=== PATIENT | female | born 1940 | race African-American/Black ===

== ENCOUNTER 2022-03-18 09:57 | Observation (INO) | payer MEDICARE, OTHER ==
[~2022-03-18] VITALS: Ht 160 cm; Wt 57.0 kg
[2022-03-18] VITALS (8 sets, daily range): BP systolic 165–215; BP diastolic 73–96
[~2022-03-18 09:57] MED LIST: ACYCLOVIR800 MG PO; ANTIVERT OR; BACTRIM DS1 TAB PO; CARAFATE PO; CIPROFLOXACN250 MG PO; CLONIDINE HCL0.2 MG PO; CLONIDINE0.2 MG PO; COLCHICINE PO; COLCHICINE0.6 M2 PO; DIDN'T BRING MEDS; EQ OMEPRAZOLE20 MG PO; FLUZONE SPLT1 M1 IM; GLYBURID MCR3 MG OR; HEMOCYTE PLU PO; HYDRALAZINE25 MG PO; HYDROCO/APAP1 T10 OR; IBUPROFEN600 MG OR; IBUPROFEN800 MG PO; KLOR-CON 1010 ME1 PO; KLOR-CON M1010 MEQ OR; KLOR-CON M1010 MEQ PO; KLOR-CON M1010 MEQ RE; LEVAQUIN500 MG PO; LIPITOR80 M1 PO; LISINOPRIL20 MG PO; LISINOPRIL40 MG OR; LOPID600 MG PO; LOPRESSOR25 MG OR; LOPRESSOR25 MG PO; LORTAB 10 PO; LORTAB 1010 MG PO; LORTAB 5 OR; LORTAB 5 PO; MAGNESIUM400 MG PO; MAXZIDE OR; MAXZIDE PO; MAXZIDE-25MG1 COMBO PO; MECLIZINE12.5 M1 PO; MEDDOSEPAK PO; METFORMIN500 M2 PO; METFORMIN500 MG PO; METOPROL TAR25 M1 PO; METOPROLOL TAR100 MG PO; MICRO-K10 MEQ PO; MIRAPEX0.5 MG PO; MOTRIN800 MG/TAB PO; NIFEDIPINE ER90 MG PO; NIFEDIPINE90 M1 PO; OMEPRAZOLE20 MG PO; PLAVIX75 MG PO; REGLAN5 MG OR; SIMVASTATIN20 MG PO; VICODIN OR; [UNRECOGNIZED DRUG - OTHER] OR; [UNRECOGNIZED DRUG - OTHER] PO
[2022-03-18 10:53] LABS: HEMATOCRIT 42.8 % (37.0-47.0); HEMOGLOBIN 13.7 g/dl (12.0-16.0); IMMATURE GRANULOCYTES 0.1 % (0.0-5.0); MEAN CELL VOLUME 92.6 fL CALC (80.0-100.0); MEAN CORPUSCULAR HGB 29.7 pG CALC (26.0-32.0); NEUT# 4.87 thou/uL (2.00-7.15); RED BLOOD COUNT 4.62 mill/uL (4.20-5.60)
[2022-03-18 11:13] LABS: URINE BILIRUBIN - DIPSTICK NEGATIVE (NEGATIVE); URINE BLOOD DIPSTICK NEGATIVE (NEGATIVE); URINE COLOR YELLOW; URINE GLUCOSE - DIPSTICK NEGATIVE (NEGATIVE); URINE KETONE NEGATIVE (NEGATIVE); URINE LEUK ESTERASE NEGATIVE (NEGATIVE); URINE PH 6.5 (4.5-8.0); URINE PROTEIN - DIPSTICK 30 mg/dL (NEG-TRACE); URINE UROBILINOGEN - DIPSTICK 0.2 E.U./dL (0.2)
[2022-03-18 11:16] LABS: ACT PARTIAL THROMBO TIME 25.9 SECONDS (20.0-32.5); PROTHROMBIN TIME 10.4 SECONDS (9.0-12.5)
[2022-03-18 11:17] LABS: ALBUMIN 3.7 g/dL (3.2-5.0); BILIRUBIN, TOTAL 0.4 mg/dL (0.0-1.4); CREATININE 1.3 mg/dL (0.5-1.0); MAGNESIUM 1.2 mg/dL (1.6-2.3); POTASSIUM 3.8 mmol/l (3.5-5.1); TOTAL PROTEIN 6.6 g/dL (6.3-8.2)
[2022-03-18 11:22] LABS: URINE NITRITE - DIPSTICK NEGATIVE (Negative)
[2022-03-18 11:23] LABS: URINE EPITHELIAL CELLS FEW EPI/hpf (0-FEW); URINE MUCUS FEW hpf (NONE-FEW)
[2022-03-18] MEDS ORDERED: NORVASC5 M1 PO (15:01)
[2022-03-18] MEDS ORDERED: ALLOPURINOL100 MG PO (15:01)
[2022-03-18] MEDS ORDERED: CARAFATE1 GM PO (15:02)
[2022-03-18] MEDS ORDERED: ATORVASTATIN CA40 MG PO (15:04)
[2022-03-18] MEDS ORDERED: METFORMIN500 M2 PO (15:04)
[2022-03-18] MEDS ORDERED: ALENDRONATE SOD70 MG PO (15:04)
[2022-03-18] MEDS ORDERED: CLONIDINE0.1 MG PO (15:04)
[2022-03-18] MEDS ORDERED: APRESOLINE50 MG PO (15:05)
[2022-03-18] MEDS ORDERED: ADULT ASPIRIN R81 MG PO (15:18)
[2022-03-18] MEDS ORDERED: LISINOPRIL10 MG PO (15:18)
[2022-03-18] MEDS ORDERED: SOLIFENACIN SUCC5 MG PO (15:19)
[2022-03-19] VITALS (8 sets, daily range): BP systolic 139–180; BP diastolic 61–93
[2022-03-19 05:17] LABS: HEMATOCRIT 38.2 % (37.0-47.0); MEAN CELL VOLUME 94.3 fL CALC (80.0-100.0); MEAN CORPUSCULAR HGB 29.6 pG CALC (26.0-32.0); MEAN CORPUSCULAR HGB CONC 31.4 g/dL CAL (32.0-36.0); RED BLOOD COUNT 4.05 mill/uL (4.20-5.60)
[2022-03-19 05:39] LABS: CREATININE 1.1 mg/dL (0.5-1.0); MAGNESIUM 1.5 mg/dL (1.6-2.3); POTASSIUM 3.8 mmol/l (3.5-5.1)
[2022-03-20] VITALS (11 sets, daily range): BP systolic 141–191; BP diastolic 53–94
[2022-03-20 06:10] LABS: ANION GAP 10 (6-22 (CALC)); BUN 13 mg/dL (8-23); BUN/CREATININE RATIO 13 (12-20 (CALC)); CARBON DIOXIDE 25 mmol/l (22-30); CHLORIDE 108 mmol/l (95-108); GFR 53 ML/MIN (>=60 (CALC)); GFR FOR AFR.AMER. > 60 ML/MIN (>=60 (CALC)); MAGNESIUM 1.6 mg/dL (1.6-2.3); POTASSIUM 3.5 mmol/l (3.5-5.1); SODIUM 140 mmol/l (137-146)
[2022-03-20 17:20] LABS: HEMATOCRIT 42.7 % (37.0-47.0); HEMOGLOBIN 13.3 g/dl (12.0-16.0); MEAN CELL VOLUME 94.1 fL CALC (80.0-100.0); MEAN CORPUSCULAR HGB 29.3 pG CALC (26.0-32.0); MEAN CORPUSCULAR HGB CONC 31.1 g/dL CAL (32.0-36.0); NEUT# 4.04 thou/uL (2.00-7.15); RED BLOOD COUNT 4.54 mill/uL (4.20-5.60); RED CELL DISTRI WIDTH 14.1 % (11.5-15.5)
[2022-03-20 18:08] LABS: IMMATURE GRANULOCYTES 0.3 % (0.0-5.0)
[2022-03-21 04:00] VITALS: BP 142/78
[2022-03-21 05:14] LABS: HEMATOCRIT 39.7 % (37.0-47.0); HEMOGLOBIN 12.5 g/dl (12.0-16.0); IMMATURE GRANULOCYTES 0.2 % (0.0-5.0); MEAN CELL VOLUME 94.5 fL CALC (80.0-100.0); MEAN CORPUSCULAR HGB 29.8 pG CALC (26.0-32.0); MEAN CORPUSCULAR HGB CONC 31.5 g/dL CAL (32.0-36.0); NEUT# 2.55 thou/uL (2.00-7.15); RED BLOOD COUNT 4.2 mill/uL (4.20-5.60); RED CELL DISTRI WIDTH 14.2 % (11.5-15.5)
[2022-03-21 05:42] LABS: CREATININE 1.2 mg/dL (0.5-1.0); MAGNESIUM 1.9 mg/dL (1.6-2.3); POTASSIUM 3.8 mmol/l (3.5-5.1)
[2022-03-21 08:07] VITALS: BP 178/81
[2022-03-21 10:30] VITALS: BP 181/66
[2022-03-21 10:46] VITALS: BP 147/52
[2022-03-21 14:40] VITALS: BP 115/53
[2022-03-21 19:10] VITALS: BP 165/54
[2022-03-22 00:49] VITALS: BP 148/74
[2022-03-22 04:00] VITALS: BP 155/71
[2022-03-22 08:00] VITALS: BP 198/82
[2022-03-22 10:45] VITALS: BP 197/90
[2022-03-22] MEDS ORDERED: CIPROFLOXACN500 MG PO (11:17)
[2022-03-22] MEDS ORDERED: METRONIDAZOLE500 MG PO (11:18)
[2022-03-22] MEDS ORDERED: ONDANSETRON4 MG PO (11:18)
== END 2022-03-22 12:12 | disposition home or self-care (01) ==
LOC: ED 09:57 → MS2 13:08
PROVIDERS: Nurse Practitioner; ADMIT Internal Medicine; ATTEND Internal Medicine
DX: K57.32 Diverticulitis of large intestine without perforation or abscess without bleeding (principal); I10 Essential (primary) hypertension; E11.9 Type 2 diabetes mellitus without complications; I25.10 Atherosclerotic heart disease of native coronary artery without angina pectoris; E78.5 Hyperlipidemia, unspecified; H91.3 Deaf nonspeaking, not elsewhere classified; N28.1 Cyst of kidney, acquired; Z86.73 Personal history of transient ischemic attack (TIA), and cerebral infarction without residual deficits; Z79.84 Long term (current) use of oral hypoglycemic drugs; Z20.822 Contact with and (suspected) exposure to COVID-19
CPT/HCPCS: G0378; J1650; J3475; Q9967

== ENCOUNTER 2022-07-17 08:40 | Emergency (ER) | payer MEDICARE, OTHER ==
[~2022-07-17] VITALS: Ht 154.9 cm; Wt 61.1 kg
[2022-07-17] VITALS (8 sets, daily range): BP systolic 155–239; BP diastolic 66–109
[~2022-07-17 08:40] MED LIST changes: +ADULT ASPIRIN R81 MG PO; +ALENDRONATE SOD70 MG PO; +ALLOPURINOL100 MG PO; +APRESOLINE50 MG PO; +ATORVASTATIN CA40 MG PO; +CARAFATE1 GM PO; +CIPROFLOXACN500 MG PO; +CLONIDINE0.1 MG PO; +LISINOPRIL10 MG PO; +METRONIDAZOLE500 MG PO; +NORVASC5 M1 PO; +ONDANSETRON4 MG PO; +SOLIFENACIN SUCC5 MG PO
[2022-07-17 09:25] LABS: HEMOGLOBIN 13.7 g/dl (12.0-16.0); IMMATURE GRANULOCYTES 0.2 % (0.0-5.0); MEAN CELL VOLUME 89.6 fL CALC (80.0-100.0); MEAN CORPUSCULAR HGB 29.2 pG CALC (26.0-32.0); MEAN CORPUSCULAR HGB CONC 32.6 g/dL CAL (32.0-36.0); NEUT# 2.67 thou/uL (2.00-7.15); RED BLOOD COUNT 4.69 mill/uL (4.20-5.60); RED CELL DISTRI WIDTH 14.7 % (11.5-15.5)
[2022-07-17 09:32] LABS: ALBUMIN 4.1 g/dL (3.2-5.0); ALKALINE PHOSPHATASE 73 u/l (38-126); ANION GAP 11 (6-22 (CALC)); BILIRUBIN, TOTAL 0.4 mg/dL (0.0-1.4); BUN 24 mg/dL (8-23); BUN/CREATININE RATIO 20 (12-20 (CALC)); CARBON DIOXIDE 27 mmol/l (22-30); CHLORIDE 108 mmol/l (95-108); CREATININE 1.2 mg/dL (0.5-1.0); GFR FOR AFR.AMER. 52 ML/MIN (>=60 (CALC)); GFR OTHER RACES 43 ML/MIN (>=60 (CALC)); SGOT/AST 23 u/l (9-36); SODIUM 142 mmol/l (137-146); TOTAL PROTEIN 7.6 g/dL (6.3-8.2)
[2022-07-17 10:24] LABS: URINE BILIRUBIN - DIPSTICK NEGATIVE (NEGATIVE); URINE BLOOD DIPSTICK NEGATIVE (NEGATIVE); URINE COLOR YELLOW; URINE GLUCOSE - DIPSTICK NEGATIVE (NEGATIVE); URINE KETONE NEGATIVE (NEGATIVE); URINE PROTEIN - DIPSTICK TRACE mg/dL (NEG-TRACE); URINE UROBILINOGEN - DIPSTICK 0.2 E.U./dL (0.2)
[2022-07-17 10:25] LABS: URINE BACTERIA MANY hpf; URINE LEUK ESTERASE MODERATE (NEGATIVE); URINE NITRITE - DIPSTICK NEGATIVE (Negative); URINE SQUAMOUS EPITHELIAL CELL MANY EPI/hpf (0-FEW)
[2022-07-17] MEDS ORDERED: NITROFURANTN100 M2 PO (11:52)
== END 2022-07-17 12:00 | disposition home or self-care (01) ==
LOC: ED 08:40
PROVIDERS: Family Medicine
DX: N39.0 Urinary tract infection, site not specified (principal); B96.1 Klebsiella pneumoniae [K. pneumoniae] as the cause of diseases classified elsewhere; I10 Essential (primary) hypertension; E11.9 Type 2 diabetes mellitus without complications; I48.91 Unspecified atrial fibrillation; H91.3 Deaf nonspeaking, not elsewhere classified; Z86.73 Personal history of transient ischemic attack (TIA), and cerebral infarction without residual deficits; Z79.84 Long term (current) use of oral hypoglycemic drugs
CPT/HCPCS: Q9967

== ENCOUNTER 2022-08-29 21:48 | Emergency (ER) | payer MEDICARE ==
[~2022-08-29] VITALS: Ht 154.9 cm; Wt 60.0 kg
[~2022-08-29 21:48] MED LIST changes: +NITROFURANTN100 M2 PO
[2022-08-29 23:48] LABS: HEMATOCRIT 42.4 % (37.0-47.0); HEMOGLOBIN 13.7 g/dl (12.0-16.0); IMMATURE GRANULOCYTES 0.2 % (0.0-5.0); MEAN CORPUSCULAR HGB 29.7 pG CALC (26.0-32.0); MEAN CORPUSCULAR HGB CONC 32.3 g/dL CAL (32.0-36.0); NEUT# 5.02 thou/uL (2.00-7.15); RED BLOOD COUNT 4.61 mill/uL (4.20-5.60); RED CELL DISTRI WIDTH 14.5 % (11.5-15.5)
[2022-08-29 23:57] LABS: ALBUMIN 4.4 g/dL (3.2-5.0); ALKALINE PHOSPHATASE 86 u/l (38-126); ANION GAP 16 (6-22 (CALC)); BILIRUBIN, TOTAL 0.5 mg/dL (0.0-1.4); BUN 22 mg/dL (8-23); BUN/CREATININE RATIO 18 (12-20 (CALC)); CARBON DIOXIDE 27 mmol/l (22-30); CHLORIDE 101 mmol/l (95-108); CREATININE 1.2 mg/dL (0.5-1.0); GFR FOR AFR.AMER. 52 ML/MIN (>=60 (CALC)); GFR OTHER RACES 43 ML/MIN (>=60 (CALC)); POTASSIUM 4.1 mmol/l (3.5-5.1); SGOT/AST 31 u/l (9-36); SODIUM 140 mmol/l (137-146)
[2022-08-30 00:09] LABS: MYOGLOBIN 58 ng/mL (0 - 62)
[2022-08-30 01:12] LABS: URINE BILIRUBIN - DIPSTICK NEGATIVE (NEGATIVE); URINE BLOOD DIPSTICK NEGATIVE (NEGATIVE); URINE COLOR YELLOW; URINE GLUCOSE - DIPSTICK NEGATIVE (NEGATIVE); URINE KETONE NEGATIVE (NEGATIVE); URINE LEUK ESTERASE NEGATIVE (NEGATIVE); URINE PROTEIN - DIPSTICK NEGATIVE (NEG-TRACE); URINE UROBILINOGEN - DIPSTICK 0.2 E.U./dL (0.2)
[2022-08-30 01:16] LABS: URINE NITRITE - DIPSTICK NEGATIVE (Negative)
[2022-08-30 02:26] VITALS: BP 159/66
== END 2022-08-30 02:46 | disposition home or self-care (01) ==
LOC: ED 21:48
PROVIDERS: Emergency Medicine
DX: R44.3 Hallucinations, unspecified (principal); I10 Essential (primary) hypertension; E11.9 Type 2 diabetes mellitus without complications; I48.91 Unspecified atrial fibrillation; H91.3 Deaf nonspeaking, not elsewhere classified; Z79.84 Long term (current) use of oral hypoglycemic drugs